=== PATIENT | male | born 1990 | race Caucasian/White ===

== ENCOUNTER 2016-08-20 17:50 | Emergency (ER) | payer MEDICAID ==
[~2016-08-20] VITALS: Ht 175.3 cm; Wt 68.0 kg
[2016-08-20 17:53] VITALS: BP 128/66; PULSE 82; RESP 16; TEMP 98.5; O2SAT 99
[2016-08-20] MEDS ORDERED: CEPH-459 PO (20:49)
[2016-08-20] MEDS ORDERED: HYDR-3516 PO (20:49)
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
== END 2016-08-20 22:44 | disposition home or self-care (01) ==
LOC: NEPD 17:50
DX: M79.642 Pain in left hand (principal); Z72.0 Tobacco use; Z53.20 Procedure and treatment not carried out because of patient's decision for unspecified reasons
CPT/HCPCS: 73130; 99283